=== PATIENT | female | born 1985 | race Caucasian/White ===

== ENCOUNTER 2018-08-23 01:28 | Emergency (ER) | payer OTHER ==
[2018-08-23 01:58] VITALS: BP 131/87; PULSE 89; TEMP 97.7; BMI 32.5
--- NOTE | 2018-08-23 02:41 | PDOC ---
History of Present Illness - General Chief Complaint: Migraine Headache Stated Complaint: MIGRAINE, PAIN/LT SIDE Time Seen by Provider: 08/23/18 01:54 - History of Present Illness Initial Comments: HPI: 33 y/o female presenting to [facility] ER complaining of a left sided headache starting behind her eye and extending backward. Started six days ago and has fluctuate in intensity. Endorses associated photophobia and occasional blurry vision in bright light. Made better with caffeine intake. No change with Tylenol or Advil. 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 Denies recurrent migrainous headaches. Also complaining of lower left anterior chest wall pain and left lower back pain. States the pain started approx. 6 days ago as well. Expressed concern the left anterior chest wall felt deformed and swollen when compared to the right. Denies skin changes or trauma to the area. No history of similar pain. Denies new bras. Does not wear underwire bras. Pain persisted yesterday despite not wearing a bra all day. No change in pain with exertion. No associated SOB. Elected to seek emergency evaluation tonight after symptoms failed to resolve. PCP: Dr. 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 Hx: - Hypothyroidism, managed with Synthroid Review of Systems: In addition to that documented in the HPI above, the additional ROS was obtained : Constitutional: Denies fevers or chills Head: Per HPI ENMT: Denies sore throat CV: Per HPI Resp: Denies SOB GI: Denies vomiting or diarrhea : Denies painful urination MSK: Denies recent trauma Skin: Denies new rashes Neuro: Denies new numbness or tingling or weakness Endocrine: Denies polyuria Heme: Denies bleeding or bruising Physical Examination: Constitutional: Well-developed, well-nourished adult female in no acute distress or obvious discomfort. Obese body habitus. Found semi-fowlers on hospital bed. Alert and oriented x4. Answered all questions appropriately and completely. Speech was non-labored, non-pressured. Head: Normocephalic. No obvious external signs of trauma. Eyes: Pupils 3mm and PERRL bilaterally. EOMI. Sclerae white. Conjunctiva moist and not injected. Ears: Hearing grossly intact. Nose: No nasal discharge. Throat: Oral cavity and pharynx normal. No inflammation, swelling, exudate, or lesions. Teeth and gingiva in good general condition. Uvula midline. Neck: Supple, trachea is midline. Cardiovascular / Chest: Regular rate and regular rhythm. No murmur, rubs, clicks , or gallops. Peripheral pulses: radial pulses full. Point tenderness to lower left anterior chest wall along bra line. No skin changes. No asymmetry when compared to the right. Respiratory: Breathing unlabored. Equal chest rise and fall. Clear to auscultation bilaterally. No stridor, no wheezing, no rhonchi. Gastrointestinal: abdomen is soft, non-tender, non-distended. Neuro: Alert and oriented. Moving all four extremities spontaneously. No focal deficits. Cranial nerves intact. Sensation to all four extremities intact. Upper and lower extremities: proximal and distal strength 5/5. Camp Coordinator strength 5/ 5 - equal and symmetric. Plantar flexion and dorsiflexion 5/5. No nuchal rigidity. Intact rapid alternating movements, finger to nose, and heel to lambert. Skin: Warm, dry, and intact. No bruising, rashes, or other lesions. : No R or L CVA tenderness. Psych: Affect: appropriate. Mood: normal. MDM: *Reviewed vital signs, nursing notes, and prior visit documentation (if available). 33 y/o female complaining of left sided headache, which improves with caffeine intake. Suspect likely tension headache versus migraine headache versus tension headache. Will obtain head CT to evaluate for intracranial mass given h/o of prior soft tissue tumor; very low suspicion given intact neuro exam and symptom description. No intracranial lesion revealed. [facility] report included below. Ordered Reglan and Benadryl for symptom relief. Left sided chest pain is very localizing with exquisite point tenderness along the bra line. Suspect likely secondary to undergarment versus MSK strain. CXR unremarkable for acute cardiopulmonary process. EKG revealed a sinus rhythm without ischemic ectopy. Very low suspicion for ACS. Lower left back pain. Possibly MSK pain. Ordered lidoderm patch. Low suspicion for pyelonephritis but pyuria and leukocyte esterase were noted on UA. Will prescribe 7 day course of Keflex to cover for possible developing pyelonephritis. First dose given in the ED. Pt reassessed. Reports all pain symptoms have improved. Discussed imaging and laboratory results with pt. Answered all questions. Provided return precautions. Pt expressed verbal understanding and agreement with plan to discharge home with outpatient follow up. Provided copies of results. Mc Russell M.D., PGY1 Emergency Medicine Resident Past History - Past Medical History Allergies/Adverse Reactions: Allergies Allergy/AdvReac Type Severity Reaction Status Date / Time No Known Allergies Allergy Verified 08/23/18 01:51 Home Medications: Ambulatory Orders Cephalexin Monohydrate [Keflex -] 500 mg PO BID #7 capsule 08/23/18 Levothyroxine [Synthroid -] 200 mcg PO DAILY 08/23/18 COPD: No Seizures: Yes - Suicide/Smoking/Psychosocial Hx Smoking History: Never smoked *Physical Exam - Vital Signs Last Vital Signs Temp Pulse Resp BP Pulse Ox 97.7 F 89 18 131/87 100 08/23/18 01:51 08/23/18 01:51 08/23/18 01:51 08/23/18 01:51 08/23/18 02:22 ED Treatment Course - RADIOLOGY Radiograph Interpretation: Non-Con Head CT: THIS IS A PRELIMINARY REPORT FROM [facility] DATE OF SERVICE: 2018-08-23 03:22:33 IMAGES: 175 EXAM: HEAD CT WITHOUT CONTRAST HISTORY: 33-year-old female left-sided headache with visual disturbance COMPARISON: None. FINDINGS: No acute intracranial hemorrhage mass effect or midline shift. Newman-white differentiation is maintained. Ventricles sulci and basilar cisterns appear unremarkable. Calvarium is intact. The sinuses and mastoid air cells are clear. IMPRESSION No acute intracranial abnormality. This CT exam was performed using one or more of the following dose reduction techniques: automated exposure control, adjustment of the mA and/or kV according to patient size, use of iterative reconstruction technique. One or more of the following dose reduction techniques were used: automated exposure control, adjustment of the mA and/or kV according to patient size, use of iterative reconstructive technique. THIS DOCUMENT HAS BEEN ELECTRONICALLY SIGNED Guru Monterroso MD 08/23/2018 03:36 EST *DC/Admit/Observation/Transfer Diagnosis at time of Disposition: Headache around the eyes, Anterior chest wall pain Acute cystitis Qualifiers: Hematuria presence: without hematuria Qualified Code(s): N30.00 - Acute cystitis without hematuria - Discharge Dispostion Disposition: HOME Condition at time of disposition: Good Decision to Admit order: No - Prescriptions Prescriptions: Cephalexin Monohydrate [Keflex -] 500 mg PO BID #7 capsule - Referrals Referrals: Clifton rTotter MD, MD [Primary Care Provider] - - Patient Instructions Printed Discharge Instructions: DI for Urinary Tract Infection (UTI), DI for Atypical Chest Pain, DI for Headache Additional Instructions: You were seen today for a headache, left sided chest pain, and left lower back pain. Your xrays were normal. Your urine test showed you likely have a urinary tract infection. I have sent a prescription for Keflex to your pharmacy. Take as directed on the package insert. You can take over the counter Tylenol or Advil as needed for pain. Take as directed on the package insert. Do not exceed the recommended dosage. Follow up with your primary care doctor within the next week. You will need to call to make an appointment. The number is included in this packet. A copy of todays results are attached to this packet. Take it to the appointment so your doctor can review them. Go to the nearest emergency department if your condition worsens or you feel like you need additional emergency evaluation. Print Language: PERSIAN - Post Discharge Activity Forms/Work/School Notes: Back to Work
[2018-08-23] MEDS ORDERED: LIDOCAINE 5% TOPICAL PATCH TP ONE (02:42)
[2018-08-23] MEDS ORDERED: METOCLOPRAMIDE HCL INJECTION 10 MG/2 ML VIAL IVPUSH ONE (02:42)
[2018-08-23] MEDS ORDERED: METOCLOPRAMIDE HCL INJECTION 10 MG/2 ML VIAL ONE (02:57)
[2018-08-23] MEDS ORDERED: LIDOCAINE 5% TOPICAL PATCH ONE (02:57)
[2018-08-23 03:04] LABS: HCG,QUALITATIVE URINE Negative
[2018-08-23 03:06] LABS: EPI CELLS 1.7 /HPF (0-5/HPF); PH,URINE 5.5 (5.0-8.0); URINE APPEARANCE CLEAR; URINE BACTERIA 26.1 /hpf (NEGATIVE); URINE BILIRUBIN NEGATIVE (NEGATIVE); URINE CASTS 0 /lpf (0-8); URINE COLOR YELLOW; URINE GLUCOSE (UA) NEGATIVE (NEGATIVE); URINE KETONE NEGATIVE (NEGATIVE); URINE LEUK ESTERASE 2+ (NEGATIVE); URINE NITRITE NEGATIVE (NEGATIVE); URINE PROTEIN NEGATIVE (NEGATIVE); URINE RBC 1 /hpf (0-4); URINE UROBILINOGEN 0.2 mg/dL (0.2-1.0); URINE WBC 22 /hpf (0-5)
[2018-08-23] MEDS ORDERED: CEPHALEXIN MONOHYDRATE 500 MG CAPSULE (UD) PO ONE (03:52)
[2018-08-23] MEDS ORDERED: CEPHALEXIN MONOHYDRATE 500 MG CAPSULE (UD) ONE (03:55)
--- NOTE | 2018-08-23 04:06 | PDOC ---
Documentation entered by Arnoldo Drake SCRIBE, acting as scribe for Mylene Rutherford DO. Mylene Rutherford DO: This documentation has been prepared by the Vidal dietz Nirvannie, SCRIBE, under my direction and personally reviewed by me in its entirety. I confirm that the documentation accurately reflects all work, treatment, procedures, and medical decision making performed by me. 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 Patient also endorses mild pain to the left lower back. She denies SOB or palpitations. Allergies: NKDA Primary Care Physician: Dr. Trotter - Physicial Exam PE: 08/23/18 02:58 Agree with resident exam. - Medical Decision Making 08/23/18 03:43 EXAM: HEAD CT WITHOUT CONTRAST HISTORY: 33-year-old female left-sided headache with visual disturbance COMPARISON: None. FINDINGS: No acute intracranial hemorrhage mass effect or midline shift. Newman-white differentiation is maintained. Ventricles sulci and basilar cisterns appear unremarkable. Calvarium is intact. The sinuses and mastoid air cells are clear. IMPRESSION: No acute intracranial abnormality. This CT exam was performed using one or more of the following dose reduction techniques: automated exposure control, adjustment of the mA and/or kV according to patient size, use of iterative reconstruction technique. Read by: Guru Monterroso MD 08/23/18 03:47 * 33-year-old female with complaints of intermittent left-sided headache, left- sided mid back and left-sided low back pain as well as intermittent left lower anterior chest wall pain Chest x-ray shows no acute abnormality Labs suggest urinary tract infection Plan for discharge on Keflex EKG shows no acute ST segment abnormalities Patient given Benadryl and Reglan in the emergency department Plan for discharge home with primary care follow-up
--- NOTE | 2018-08-23 10:45 | EKG ---
Test Reason : Blood Pressure : / mmHG Vent. Rate : 077 BPM Atrial Rate : 077 BPM P-R Int : 150 ms QRS Dur : 104 ms QT Int : 394 ms P-R-T Axes : 071 003 024 degrees QTc Int : 445 ms NORMAL SINUS RHYTHM POSSIBLE LEFT ATRIAL ENLARGEMENT INCOMPLETE RIGHT BUNDLE BRANCH BLOCK BORDERLINE ECG NO PREVIOUS ECGS AVAILABLE Confirmed by NICHOLAS MAYO MD ([id number]) on 08/23/2018 10:45:14 AM Referred By: Confirmed By:NICHOLAS MAYO MD
[2018-08-23] MEDS ORDERED: LIDOCAINE PATCH REMOVAL MC SCH (22:00)
== END 2018-08-23 04:01 | disposition home or self-care (01) ==
LOC: JER 01:28
PROC: 3E033GC Introduction of Other Therapeutic Substance into Peripheral Vein, Percutaneous Approach (ICD-10-PCS; principal; 2018-08-23)
DX: N30.00 Acute cystitis without hematuria (principal); R51 Headache; R07.89 Other chest pain
CPT/HCPCS: 70450-TC; 71046-TC-FY; 81003; 84703; 87086; 93005; 93010; 99283-25

== ENCOUNTER 2019-01-28 18:43 | Emergency (ER) | payer SELFPAY ==
[2019-01-28 18:46] VITALS: BP 120/72; PULSE 84; TEMP 97.7; BMI 32.5
[2019-01-28] MEDS ORDERED: RANITIDINE HCL 150 MG TABLET (FP) PO ONE (18:59)
[2019-01-28] MEDS ORDERED: MAG HYDROX/AL HYDROX/SIMETH 30 ML UNIT-DOSE CUP PO ONE (18:59)
[2019-01-28] MEDS ORDERED: MAG HYDROX/AL HYDROX/SIMETH 30 ML UNIT-DOSE CUP ONE (19:04)
--- NOTE | 2019-01-28 19:06 | PDOC ---
History of Present Illness - General Chief Complaint: Chest Pain Stated Complaint: CHEST PAIN Time Seen by Provider: 01/28/19 18:52 History Source: Patient - History of Present Illness Presenting Symptoms: Abdominal Pain, Chest Pain Past History - Past Medical History Allergies/Adverse Reactions: Allergies Allergy/AdvReac Type Severity Reaction Status Date / Time davida Allergy Verified 01/28/19 18:46 Home Medications: Ambulatory Orders Cephalexin Monohydrate [Keflex -] 500 mg PO BID #7 capsule 08/23/18 Levothyroxine [Synthroid -] 200 mcg PO DAILY 08/23/18 Famotidine [Pepcid] 20 mg PO DAILY #14 tablet 01/28/19 Mag Hydrox/Al Hydrox/Simeth [Mylanta Suspension -] 30 ml PO Q6H #1 bottle COPD: No Seizures: Yes - Psycho Social/Smoking Cessation Hx Smoking History: Never smoked Review of Systems - Review of Systems Constitutional: No: Chills, Fever Respiratory: No: Shortness of Breath Cardiac (ROS): Yes: Chest Pain ABD/GI: Yes: Diarrhea, Nausea, Vomiting : No: Dysuria, Discharge, Flank Pain, Hematuria Musculoskeletal: No: Back Pain *Physical Exam - Vital Signs Last Vital Signs Temp Pulse Resp BP Pulse Ox 97.7 F 84 18 120/72 100 01/28/19 18:44 01/28/19 18:44 01/28/19 18:44 01/28/19 18:44 01/28/19 18:44 - Physical Exam General Appearance: Yes: Appropriately Dressed. No: Apparent Distress HEENT: positive: Normal Voice Neck: positive: Supple Respiratory/Chest: positive: Lungs Clear, Normal Breath Sounds. negative: Respiratory Distress Cardiovascular: positive: Regular Rate, S1, S2 Gastrointestinal/Abdominal: positive: Soft. negative: Tender Musculoskeletal: positive: Normal Inspection. negative: CVA Tenderness Integumentary: positive: Dry, Warm Neurologic: positive: Fully Oriented, Alert, Normal Mood/Affect ED Treatment Course - RADIOLOGY Radiology Studies Ordered: Category Date Time Status CHEST PA & LAT [RAD] Stat Radiology 01/28/19 18:58 Completed - Medications Given in the ED: ED Medications Discontinued Medications Generic Name Dose Route Start Last Admin Trade Name Freq PRN Reason Stop Dose Admin Al Hydroxide/Mg Hydroxide 30 ml 01/28/19 18:59 01/28/19 19:07 Mylanta Oral Suspension - PO 01/28/19 19:00 30 ml ONCE ONE Administration Ranitidine HCl 150 mg 01/28/19 18:59 01/28/19 19:07 Zantac - PO 01/28/19 19:00 Not Given ONCE ONE Medical Decision Making - Medical Decision Making 01/28/19 19:00 33-year-old female, history of heart murmur and asthma, here with chest pain. Patient states for the past 6 days has had intermittent chest/upper abdominal pain, unable to describe, possibly worse with food. Also reports bloating w/ n/v /d several days ago that has since resolved. Took some OTC GI meds last night w / some relief. No melena, BRBPR, excessive belching, fever or chills. Patient states she believes she might have gastritis because have had similar upper abd pain in the past when she eats certain foods but concerned about her heart given her heart murmur whish she has also been told was benign per pt See exam Possible gastritis/GERD Well chris and stable w/ benign abd EKG and CXR negative -dc w/ small dose of pepcid/maalox and encourage PMD f/u 01/28/19 19:34 01/28/19 19:53 Signed out to KHOA Patiño pending upreg/CXR Discharge - Discharge Information Problems reviewed: Yes Clinical Impression/Diagnosis: Upper abdominal pain Condition: Good Disposition: HOME - Additional Discharge Information Prescriptions: Famotidine [Pepcid] 20 mg PO DAILY #14 tablet Mag Hydrox/Al Hydrox/Simeth [Mylanta Suspension -] 30 ml PO Q6H #1 bottle - Follow up/Referral - Patient Discharge Instructions Patient Printed Discharge Instructions: Gastritis Additional Instructions: Your EKG and chest x-ray were normal here Take Pepcid and Maalox as directed and follow-up with your PMD if symptoms persist - Post Discharge Activity
--- NOTE | 2019-01-28 20:28 | PDOC ---
*Physical Exam - Vital Signs Last Vital Signs Temp Pulse Resp BP Pulse Ox 97.7 F 84 18 120/72 100 01/28/19 18:44 01/28/19 18:44 01/28/19 18:44 01/28/19 18:44 01/28/19 18:44 - Physical Exam General Appearance: No: Apparent Distress Respiratory/Chest: positive: Lungs Clear, Normal Breath Sounds. negative: Respiratory Distress Cardiovascular: positive: Regular Rhythm, Regular Rate, S1, S2. negative: Murmur Gastrointestinal/Abdominal: positive: Normal Bowel Sounds, Soft. negative: Tender, Distended, Guarding, Rebound ED Treatment Course - ADDITIONAL ORDERS Additional order review: Laboratory Results 01/28/19 19:40 Urine HCG, Qual Negative - Medications Given in the ED: ED Medications Discontinued Medications Generic Name Dose Route Start Last Admin Trade Name Freq PRN Reason Stop Dose Admin Al Hydroxide/Mg Hydroxide 30 ml 01/28/19 18:59 01/28/19 19:07 Mylanta Oral Suspension - PO 01/28/19 19:00 30 ml ONCE ONE Administration Ranitidine HCl 150 mg 01/28/19 18:59 01/28/19 19:07 Zantac - PO 01/28/19 19:00 Not Given ONCE ONE Medical Decision Making - Medical Decision Making Patient referred to me by KHOA Yang UCG negative CXR negative as well Advised f/u with PCP stable for dc 01/28/19 20:27 Discharge - Discharge Information Problems reviewed: Yes Clinical Impression/Diagnosis: Upper abdominal pain Condition: Good - Admission No - Additional Discharge Information Prescriptions: Famotidine [Pepcid] 20 mg PO DAILY #14 tablet Mag Hydrox/Al Hydrox/Simeth [Mylanta Suspension -] 30 ml PO Q6H #1 bottle Prescription Drug Monitoring Program (I-STOP) results: I-STOP not reviewed - Follow up/Referral - Patient Discharge Instructions Patient Printed Discharge Instructions: Gastritis Additional Instructions: Your EKG and chest x-ray were normal here Take Pepcid and Maalox as directed and follow-up with your PMD if symptoms persist - Post Discharge Activity
--- NOTE | 2019-01-29 15:55 | EKG ---
Test Reason : Blood Pressure : / mmHG Vent. Rate : 078 BPM Atrial Rate : 078 BPM P-R Int : 150 ms QRS Dur : 098 ms QT Int : 376 ms P-R-T Axes : 071 008 031 degrees QTc Int : 428 ms NORMAL SINUS RHYTHM POSSIBLE LEFT ATRIAL ENLARGEMENT BORDERLINE ECG WHEN COMPARED WITH ECG OF 23-AUG-2018 03:08, NO SIGNIFICANT CHANGE WAS FOUND Confirmed by ZABRINA FIELD MD ([id number]) on 01/29/2019 3:55:30 PM Referred By: Confirmed By:ZABRINA FIELD MD
== END 2019-01-28 20:32 | disposition home or self-care (01) ==
LOC: JERFT 18:43
DX: K29.70 Gastritis, unspecified, without bleeding (principal); R01.1 Cardiac murmur, unspecified; J45.909 Unspecified asthma, uncomplicated; Z86.69 Personal history of other diseases of the nervous system and sense organs; Z91.018 Allergy to other foods
CPT/HCPCS: 71046-TC-FY; 84703; 93005; 93010; 99281-25

== ENCOUNTER 2021-04-05 19:51 | Emergency (ER) | payer OTHER ==
[2021-04-05 20:12] VITALS: BP 116/82; PULSE 89; TEMP 97.9; BMI 37.5
== END 2021-04-06 01:03 | disposition home or self-care (01) ==
LOC: JER 19:51
DX: R07.0 Pain in throat (principal)
CPT/HCPCS: 87070; 87651; 87804; 87807; 99283-25; C9803; U0003; U0005

== ENCOUNTER 2022-06-05 12:29 | Emergency (ER) | payer OTHER ==
[2022-06-05 12:46] VITALS: BP 134/82; PULSE 103; RESP 18; TEMP 99.3; BMI 37.5
[2022-06-05] MEDS ORDERED: DEXAMETHASONE SOD PHOSPHATE 10 MG/1 ML VIAL PO ONE (13:45)
[2022-06-05] MEDS ORDERED: DEXAMETHASONE SOD PHOSPHATE 10 MG/1 ML VIAL ONE (13:49)
== END 2022-06-05 13:51 | disposition home or self-care (01) ==
LOC: JER 12:29
DX: U07.1 COVID-19 (principal)
CPT/HCPCS: 0241U-QW; 71046-TC-FY; 99284-25; J1100